=== PATIENT | female | born 1955 | race Caucasian/White ===

== ENCOUNTER 2017-07-23 09:28 | Emergency (ER) | payer OTHER ==
[2017-07-23] MEDS: ONDANSETRON 4 MG INJ IV (10:06)
[2017-07-23] MEDS: HYDROmorphONE 1 MG/5 ML IV SYRINGE IV (10:07)
[2017-07-23 10:57] LABS: TROPONIN-I < 0.012 ng/ml (0.000-0.120)
== END 2017-07-23 12:08 | disposition home or self-care (01) ==
LOC: E/R 09:28
DX: R07.89 Other chest pain (principal)
CPT/HCPCS: 71045; 84484; 93005; 96374; 96375; 99284-25